=== PATIENT | female | born 1950 | race Caucasian/White ===

== ENCOUNTER 2017-05-24 09:54 | Day surgery (SDC) | payer BC ==
--- NOTE | 2017-05-19 03:41 | HP ---
PREOPERATIVE HISTORY AND PHYSICAL: DATE OF ADMISSION/SURGERY: 05/24/17 DATE OF OFFICE VISIT: 05/18/17 ATTENDING SURGEON: Dr. Jorge Parry * (DICTATED BY REESE KHAN) PROCEDURE: Left knee arthroscopy, partial meniscectomy. CHIEF COMPLAINT: Left knee pain. HISTORY OF PRESENT ILLNESS: Jael is a 66-year-old female, who presented to the clinic for a left knee pain due to a medial meniscus tear. She gotten an injection at her last visit on 04/29/17. She states that the injection helped for a little, but wore off last week. She was on vacation and did a lot of stairs. Since that time, she has aggravated her knee. She describes a constant throb, she rates as an 8/10, that is worse with activity. She also reports intermittent catching in the medial aspect of the knee. She has tried ice, ibuprofen, and Tylenol which were minimally helpful. She denies numbness, tingling, and is doing well otherwise. She has failed conservative measures and has therefore agreed to undergo a left knee arthroscopy, partial meniscectomy with Dr. Parry on 05/24/17. PAST MEDICAL HISTORY: Hypertension, high cholesterol, arthritis, and asthma. PAST SURGICAL HISTORY: Tonsillectomy, meniscus repair on the right, trigger finger release, and appendectomy. The patient reports a history of nausea with anesthesia. MEDICATIONS: 1. Diclofenac sodium 75 mg take 1 by mouth twice a day as needed for pain. 2. Hydrochlorothiazide 12.5 mg 1 by mouth daily. 3. Metoprolol tartrate 50 mg 1 by mouth daily. 4. Quinapril HCl 40 mg 1 by mouth daily. 5. Alendronate sodium 70 mg 1 by mouth every week. 6. Premarin 0.625 mg/g twice weekly. 7. Fluticasone propionate 50 mcg/ACT as needed. 8. Vitamin D3 5000 units 1 by mouth every day. 9. Glucosamine chondroitin 15,000 mg 1 by mouth every day. 10. CoQ10 100 mg 1 by mouth daily. 11. Aspirin 81 mg 1 by mouth daily. 12. Calcium citrate and vitamin D 250-200 mg 2 by mouth daily. ALLERGIES: No known drug allergies. FAMILY HISTORY: Positive for hypertension, stroke, and rheumatoid arthritis. SOCIAL HISTORY: The patient lives with her spouse. She is retired. She denies tobacco use. She reports occasional alcohol consumption. She exercises occasionally. She is right hand dominant. REVIEW OF SYSTEMS: A 14-point review of systems was reviewed with the patient. Positive for the current complaint, otherwise negative. Denies chest pain, shortness of breath, fever, chills, history of bleeding disorder, history of DVT or PE. PHYSICAL EXAMINATION GENERAL: A 66-year-old well-developed, well-nourished female in no acute distress. Alert and oriented x3 with appropriate mood and affect. HEENT: Normocephalic, atraumatic. PERRLA. NECK: Supple. Throat clear. PULMONARY: Lungs clear to auscultation bilaterally. No wheezing, rhonchi, or rales. CARDIO: Regular rate and rhythm, S1 and S2. No murmurs, gallops, or rubs. No edema. ABDOMEN: Positive bowel sounds, soft, nontender. NEURO: Alert and oriented x3. Cranial nerves grossly intact. Sensation is intact to light touch. MUSCULOSKELETAL: Left lower extremity: Antalgic gait favoring the left side. Moderate effusion in the knee. Tenderness to palpation in the medial joint line. Range of motion 0 to 120. Stable to varus and valgus stress. Stable Ritesh, Neer, posterior drawer. Positive Bebeto. Calf is soft, nontender. +2 PT pulse. Sensation intact to light touch distally. DIAGNOSTIC STUDIES: MRI of the left knee revealed posterior horn medial meniscus tear, benign lesion in the distal femoral metaphysis and mild osteoarthritic changes. IMPRESSION: Left knee medial meniscus tear. PLAN: The patient is scheduled to undergo a left knee arthroscopy, partial meniscectomy with Dr. Parry on 05/24/17 for the treatment of a medial meniscus tear. The patient has failed conservative measures and would like to undergo the procedure. Risks of surgery to include infection, bleeding, risk of anesthesia, stiffness, scarring, damage to nerves, vessels, and surrounding structures, and blood clots were discussed with the patient. It was also explained to the patient that the sharp catching pain will go after surgery; however, she may have some continued ache postoperatively due to the arthritis which the surgery will not treat. Percocet was sent to the patient's pharmacy for postop pain management. The patient will follow up with Dr. Parry 10 to 14 days after surgery. REESE KHAN [id number]/[facility] #: [id number] [facility] CENTERHarper
[~2017-05-24 09:54] MED LIST: Buffered Lidocaine 0.9% SYRIN* 5 ML/SYR SYRINGE INTRADERM ONE; Famotidine IV* 10 MG/ML 2 ML (20 mg) IV ONE
[2017-05-24] MEDS ORDERED: Famotidine IV* 10 MG/ML 2 ML (20 mg) ONE (10:14)
[2017-05-24] MEDS ORDERED: ceFAZolin 2 GM PREMIX (*) 50 ML IVPB ONE (10:14)
[2017-05-24] MEDS ORDERED: Midazolam* 1 MG/ML 5 ML VIAL (5 MG) ONE (11:50)
[2017-05-24] MEDS ORDERED: fentaNYL* 50 MCG/ML 2 ML VIAL (100 MCG VIAL) ONE (11:50)
[2017-05-24] MEDS ORDERED: Lidocaine 1% MPF wEPI 200,000* 30 ML SDV ONE (12:27)
[2017-05-24] MEDS ORDERED: Bupivacaine 0.25% SDV* 30 ML ONE (12:27)
[2017-05-24] MEDS ORDERED: DiMENhydriNATE IV* 50 MG/ML VIAL ONE ×2 (12:59→13:19)
[2017-05-24] MEDS ORDERED: HYDROmorphone INJ* 1 MG/ML CARPUJECT SYRINGE ONE (13:19)
[2017-05-24] MEDS ORDERED: Ketorolac INJ* 30 MG/ML 1 ML VIAL ONE (13:19)
[2017-05-24] MEDS ORDERED: Lidocaine 2% PF * 5 ML VIAL ONE (13:19)
[2017-05-24] MEDS ORDERED: Dexamethasone IV* 4 MG/ML 1 ML (4 MG) ONE (13:19)
[2017-05-24] MEDS ORDERED: Propofol* 10 MG/ML 20 ML BTL IV PUSH ONE (13:19)
[2017-05-24] MEDS ORDERED: Ondansetron INJ* 2 MG/ML VIAL ONE (13:19)
[2017-05-24] MEDS ORDERED: Acetaminophen TAB* 325 MG PO PRN (13:21)
[2017-05-24] MEDS ORDERED: DiMENhydriNATE IV* 50 MG/ML VIAL IV PUSH PRN (13:21)
[2017-05-24] MEDS ORDERED: HYDROmorphone INJ* 1 MG/ML CARPUJECT SYRINGE IV PRN (13:21)
[2017-05-24] MEDS ORDERED: oxyCODONE TAB* 5 MG TAB PO PRN (13:21)
[2017-05-24 14:42] VITALS: BP 168/68
--- NOTE | 2017-05-25 03:47 | OP ---
CC: PCP, REESE Marquez DATE OF OPERATION: 05/24/17 [facility] DATE OF : 48 SURGEON: Joreg Parry MD PIN ATTACHER: REESE Glasgow. An industrial hire sales assistant was needed for the entirety of the case to help with positioning, retraction, and was utilized throughout all portions of the case. ANESTHESIOLOGIST: Dr. Ahmadi. ANESTHESIA: General LMA. PRE-OP DIAGNOSIS: Left knee medial meniscus tear. POST-OP DIAGNOSIS: Medial meniscal tear, lateral meniscal fraying. OPERATIVE PROCEDURE: Left knee arthroscopy with partial medial meniscectomy and partial lateral meniscectomy and chondroplasty. INDICATIONS: Ms. Jael Sullivan is a 66-year-old female who has had left knee pain since December. She was referred by my colleague. She underwent physical therapy as well as an injection. She has catching and locking. She presented with an CT that demonstrated medial meniscal tear with some mild joint space narrowing. After an extensive discussion of the risks and benefits of operative versus nonoperative treatment, she has elected to proceed with surgical treatment. She failed conservative management. Risks include, but are not limited to, bleeding, infection, damage to nerves, vessels, surrounding structures, wound nonhealing, persistent pain, need for further surgery, scarring, stiffness, incomplete relief of symptoms, need for further surgeries, worsening arthritis, and risks of anesthesia. She has elected to proceed. DESCRIPTION OF PROCEDURE: The patient was greeted in the preoperative area by the attending surgeon. Correct extremity was marked and consent was confirmed. The patient was then brought back to the operating suite where she was placed in the supine position on the operating room table. She then underwent LMA after which an unsterile tourniquet was placed high on the proximal left leg. The lateral post was positioned. The left leg was prepped and draped in the usual sterile fashion beginning with chlorhexidine soap scrub and alcohol wipe and a final prep with ChloraPrep. After appropriate surgical pause indicating site, side, procedure, and administration of antibiotics, the knee was intraarticularly injected with 1% lidocaine with epi. The left lateral portal was made with an 11 blade. The scope was introduced into the joint. Joint was examined. There was abundant synovitis and inflammation anteriorly. The patello-femoral joint had grade 0 to 1 changes. The medial and lateral gutter were intact. ACL and PCL were intact. The medial compartment was examined. There were very small areas of grade 2 changes, but otherwise grade 0 and 1 changes of the medial plateau and medial femoral condyle. There was unstable meniscus tear with an unstable flap that was parrot-beak type tear, flipped into the knee. The medial portal was made in an outside-in fashion. Biters and michelle were used to debride back the meniscus and do partial meniscectomy. This did remove about 40% of the meniscus total. The unstable flaps were removed. There were no pinched flaps. The scope was placed in lateral compartment and lateral plateau had grade 0 to 1 changes. Lateral femoral condyle had grade 0 to 1 changes. There was meniscal fraying of the body of the meniscus and the shaver was used to debride this back. The knee was placed in full extension and synovitis was then carefully removed, but there was a minimal amount of chondrosis in the medial and femoral compartment, which was debrided using the shaver. Some portions of the trochlea had grade 1 and 2 changes; otherwise, there were no full thickness lesions. The wound was for thoroughly lavaged and removed of loose debris and fluid. The wounds were copiously irrigated and closed with 3-0 nylon. The knee was intra-articularly injected with 0.25% Marcaine plain. Sterile dressings were applied. She was awoken from anesthesia and transferred to the PACU in stable condition. POSTOPERATIVE PLAN: She will be weightbearing as tolerated. She will be allowed range of motion as tolerated. I will see the patient back in 10 to 14 days. She will be discharged on pain medications as well as aspirin. DVT prophylaxis was considered, but deferred due to no previous personal or family history. [id number]/[facility] #: [id number] BRANDI
== END 2017-05-24 14:40 | disposition home or self-care (01) ==
LOC: OREAST 09:54
PROVIDERS: ATTEND Orthopaedic Surgery
DX: M23.204 Derangement of unspecified medial meniscus due to old tear or injury, left knee (principal); M23.201 Derangement of unspecified lateral meniscus due to old tear or injury, left knee; I10 Essential (primary) hypertension; R00.2 Palpitations
CPT/HCPCS: J0690; J1100; J1170; J1240; J1885; J2001; J2250; J2405; J2704; J3010

== ENCOUNTER 2017-08-08 09:11 | Emergency (ER) | payer BC ==
--- OUTSIDE RECORDS SUMMARY | 2017-08-08 10:07 | XMS REPORT ---
:1950 External Reference #:[id number] Author Organization [employer] Address [address] [address] Phone [phone] Care Team Providers Name Role Phone Velvet Oconnor PA Primary Care Physician Unavailable Payers Type Date Identification Numbers Payment Provider Subscriber Commercial Policy Number: [id number] [employer] Asad Sullivan PayID: [id number] [address] [address] [place] [address] Problems Date Description Provider Status Onset: 05/18/2017 Current tear of medial cartilage AND/OR Jorge Parry MD Active meniscus of knee Onset: 06/25/2017 Oth tear of lat mensc, current injury, left Jorge Parry MD Active knee, subs Family History Date Family Member(s) Problem(s) Comments General Hypertension General Rheumatoid Arthritis General Stroke Father due to Unknown Causes () Mother Hypertension Mother Rheumatoid Arthritis Social History Type Date Description Comments Marital Status 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 Cigarette Use Never Smoked Cigarettes ETOH Use consumes 1-2 glasses of wine per week Smoking Patient has never smoked Recreational Drug Use Never Used Drugs Daily Caffeine Consumes on average 2 cups of regular coffee per day Exercise Type/Frequency Exercises sporadically Allergies, Adverse Reactions, Alerts Date Description Reaction Status Severity Comments 01/08/2017 NKDA active Medications Medication Date Status Form Strength Qnty SIG Indications Ordering Provider Yahir Maki 05/18 Active 1unit Disp 1 s caridad Hickman MD Hydrochlorothiazide Active Capsules 12.5mg 1 po [place], /0000 daily REESE Verdin Metoprolol Tartrate Active Tablets 50mg 1 po [place], / daily REESE Verdin Quinapril HCL Active Tablets 40mg 1 po [place], /0000 daily REESE Verdin Alendronate Sodium Active Tablets 70mg 1x/week [place], /0000 REESE Verdin Premarin Active Cream 0.625mg/G twice Unknown /0000 M weekly Fluticasone Active Suspension 50mcg/Act as [place], Propionate /0000 needed REESE Verdin Vitamin D3 Active Tablets 5000Unit 1 by Unknown /0000 mouth every day Glucosamine Active Capsules 1500Com 1 by Unknown Chondroitin 1500 /0000 mouth Complex every day Co Q 10 Active Capsules 100mg 1 by Unknown /0000 mouth every day Aspirin Active Tablets DR 81mg 1 by Unknown /0000 mouth every day Calcium Citrate + D Active Tablets 250-200mg 2 po Unknown /0000 -Unit daily Walker/Two-Button 05/18 Hx Misc 1unit Disp 1 Zaneb Folding/32"-39"/ s Sondra Nelson - 05/18 Oxycodone-Acetamino 05/18 Hx Tablets 5-325mg 40tab 1-2 tabs b s by mouth Brinda, - every MD 06/24 4- hours as needed for pain Diclofenac Sodium 04/[address] 75mg 60tab take 1 b s by mouth Brinda, - twice a 06/24 day needed for pain [place] Extract 01/08 Hx Capsules 150mg 3 po Nick daily Rico, Noe ROSENBAUM 05/17 Policosanol Hx Capsules 10mg twice a / day - 05/17 Medications Administered in Office Medication Date Status Form Strength Qnty SIG Indications Ordering Provider Triamcinolone 04/29/ Administered Injection Angelica (Kenalog) 2016 ISAAC Shaikh Vital Signs Date Vital Result Comment 07/27/2017 Height 63 inches 5'3" Weight 170.00 lb BP Systolic 124 mmHg BP Diastolic 70 mmHg Respiratory Rate 18 /min Pain Level 0 BMI (Body Mass Index) 30.1 kg/m2 06/25/2017 Height 63 inches 5'3" Weight 170.00 lb Heart Rate 74 /min Respiratory Rate 14 /min Body Temperature 97.4 F Pain Level 1 BMI (Body Mass Index) 30.1 kg/m2 06/04/2017 BP Systolic 128 mmHg BP Diastolic 82 mmHg Respiratory Rate 14 /min Body Temperature 98.6 F Pain Level 6 05/18/2017 Heart Rate 62 /min BP Systolic Sitting 120 mmHg BP Diastolic Sitting 90 mmHg Body Temperature 97.6 F 04/29/2017 Height 63 inches 5'3" Weight 170.00 lb BP Systolic 124 mmHg BP Diastolic 82 mmHg Respiratory Rate 20 /min Body Temperature 98.3 F Pain Level 7 BMI (Body Mass Index) 30.1 kg/m2 01/08/2017 Height 63 inches 5'3" Weight 170.00 lb Heart Rate 72 /min BP Systolic Sitting 144 mmHg BP Diastolic Sitting 80 mmHg Respiratory Rate 18 /min Pain Level 0 8 with standing BMI (Body Mass Index) 30.1 kg/m2 Results Description No Information Procedures Date CPT Code Description Status 05/24/2017 39204 Arthroscopy,Knee,Meniscectomy Media & Lateral Completed 05/24/2017 61400 Arthroscopy,Knee,Meniscectomy Media & Lateral Completed 04/29/2017 53945 Inject/Drain Joint/Bursa Major Completed 01/08/2017 25483 Xray Knee 3 Views Completed Encounters Type Date Location Provider CPT E/M Dx Office Visit 05/18/2017 [place] [address] S83.242A 11:15a [facility] Office Visit 04/29/2017 [place] [address] S83.242A 8:30a [facility] Office Visit 01/08/2017 [facility] [place] Nick Gó[place] [address] M23.304 10:15a Of [facility] D16.22 Plan of Care 06/25/2017 - Jorge Parry, MDS83.242D Oth tear of medial meniscus, current injury, left knee, subsFollow up:Follow up: 4 [id number] Oth tear of lat mensc, current injury, left knee, subs
[2017-08-08 10:30] VITALS: BP 159/72
--- NOTE | 2017-08-08 10:41 | UC ---
Complaint Female HPI - HPI Summary HPI Summary: 67 yo female with the onset of dysuria/urgency/frequency this AM hx freq UTIs Has seen a urologist no hx pyleo hx urolithiasis no fever no vomiting no back pain - History Of Current Complaint Chief Complaint: UCGU Stated Complaint: URINARY Time Seen by Provider: 08/08/17 10:35 Hx Obtained From: Patient Hx Last Menstrual Period: age 57 Onset/Duration: Sudden Onset, Lasting Hours Timing: Constant Severity Initially: Mild Severity Currently: Mild Pain Intensity: 4 Pain Scale Used: 0-10 Numeric Character: Burning Aggravating Factor(s): Urination Associated Signs And Symptoms: Positive: Nausea. Negative: Fever, Back Pain, Vaginal Discharge, Vomiting(# Of Episodes =), Genital Swelling, Genital Blisters - Allergies/Home Medications Allergies/Adverse Reactions: Allergies Allergy/AdvReac Type Severity Reaction Status Date / Time CT CONTRAST Allergy LIPS Uncoded 08/08/17 10:22 SWELLED seasonal Allergy Congestion Uncoded 08/08/17 10:22 Home Medications: Home Medications Calcium Ascorbate [Vitamin C] 500 mg PO DAILY 08/08/17 [History Confirmed ] PMH/Surg Hx/FS Hx/Imm Hx Previously Healthy: Yes Cardiovascular History: Hypertension - Surgical History Surgical History: Yes Surgery Procedure, Year, and Place: 2006 Right knee arthroscopy [place]. 2008 Left thumb trigger finger [place]. 1967 Appendectomy [place]. 1952 Tonsillectomy and adenoids [place]. 2012 bone spurs on toes [place]. L knee arthroscopy - Family History Known Family History: Positive: Hypertension Negative: Cardiac Disease, Diabetes Family History: mother at an early age unsure why - Social History Alcohol Use: Daily Alcohol Amount: wine daily Substance Use Type: None Smoking Status (MU): Never Smoked Tobacco Have You Smoked in the Last Year: No Review of Systems Constitutional: Negative Skin: Negative Eyes: Negative ENT: Negative Respiratory: Negative Cardiovascular: Negative Gastrointestinal: Nausea Genitourinary: Dysuria, Frequency, Urgency Motor: Negative Neurovascular: Negative Musculoskeletal: Negative Neurological: Negative Psychological: Negative Is Patient Immunocompromised?: No All Other Systems Reviewed And Are Negative: Yes Physical Exam Triage Information Reviewed: Yes Appearance: Well-Appearing, No Pain Distress, Well-Nourished Vital Signs: Initial Vital Signs Temp 97.4 F 08/08/17 10:25 Pulse 71 08/08/17 10:25 Resp 18 08/08/17 10:25 BP 159/72 08/08/17 10:25 Vital Signs Reviewed: Yes Eyes: Positive: Conjunctiva Clear ENT: Positive: Hearing grossly normal. Negative: Nasal congestion, Nasal drainage, Muffled voice, Uvula midline Respiratory: Positive: Lungs clear, Normal breath sounds, No respiratory distress, No accessory muscle use Cardiovascular: Positive: RRR, No Murmur Musculoskeletal: Positive: ROM Intact, No Edema Neurological: Positive: Alert Psychological Exam: Normal Skin Exam: Normal Complaint Female Dx - Course Course Of Treatment: Udip with leuks and RBCs - Differential Dx/Diagnosis Provider Diagnoses: acute cystitis Discharge - Discharge Plan Condition: Stable Disposition: HOME Prescriptions: Ciprofloxacin TAB* [Cipro 250 MG Tab*] 250 mg PO BID #10 tab Patient Education Materials: Urinary Tract Infection in Women (ED) Referrals: Velvet Oconnor PA [Primary Care Provider] - 2 Days (if not better) Additional Instructions: urine culture pending recheck for new or worsening symptoms
== END 2017-08-08 10:45 | disposition home or self-care (01) ==
LOC: UCCORT 09:11
DX: N30.00 Acute cystitis without hematuria (principal); B96.20 Unspecified Escherichia coli [E. coli] as the cause of diseases classified elsewhere; Z72.89 Other problems related to lifestyle
CPT/HCPCS: 81003; 87077; 87086; 87186; 99212; G0463

== ENCOUNTER 2021-01-07 14:45 | Observation (INO) ==
[2021-01-07 17:46] LABS: ABS Basophils 0.1 10^3/ul (0-0.2); ABS Eosinophils 0.1 10^3/ul (0-0.6); ABS Monocytes 0.7 10^3/ul (0-0.8); ABS Neutrophils 7.2 10^3/ul (1.5-7.7); Eosinophil % 0.9 %; Hematocrit 44 % (35-47); Lymphocyte % 19.7 %; Mean Corpuscular HGB Conc 34 g/dL (31-36); Mean Corpuscular Hemoglobin 29 pg (27-31); Mean Corpuscular Volume 87 fL (80-97); Mean Platelet Volume 10.4 fL (7.4-10.4); Platelet Count 206 10^3/uL (150-450); Red Blood Count 5.09 10^6 /uL (3.70-4.87); Red Cell Distribution Width 14 % (10-15); White Blood Count 10.1 10^3/uL (3.5-10.8)
[2021-01-07 17:51] LABS: INR 1.16 (0.82-1.09)
[2021-01-07 17:57] LABS: Albumin 4.4 g/dL (3.2-5.2); Albumin/Globulin Ratio 1.4 (1-3); Calcium 10.4 mg/dL (8.6-10.3); EGFR African American 103.2 (>60); EGFR Non-African American 85.3 (>60); Globulin 3.2 g/dL (2-4); Potassium 3.5 mmol/L (3.5-5.0); Total Bilirubin 0.7 mg/dL (0.2-1.0); Total Protein 7.6 g/dL (6.4-8.9)
[2021-01-07 17:58] LABS: Troponin I 0.01 ng/mL (<0.03)
[2021-01-07] MEDS ORDERED: Enoxaparin 40 MG/0.4 ML SYR SUBCUT SCH (21:00)
[2021-01-08 07:54] LABS: INR 1.21 (0.82-1.09)
[2021-01-08 07:56] LABS: Calcium 10.3 mg/dL (8.6-10.3); EGFR African American 114.8 (>60); EGFR Non-African American 94.9 (>60); HDL Cholesterol 41.7 mg/dL; Potassium 3.5 mmol/L (3.5-5.0)
[2021-01-08 08:24] LABS: TSH Ultra Thyroid Stim Horm 1.44 mcIU/mL (0.34-5.60)
[2021-01-08 17:12] VITALS: BP 169/74
== END 2021-01-08 17:30 | disposition home or self-care (01) ==
LOC: MEDTELE 14:45 → ED 14:45
PROVIDERS: ADMIT Internal Medicine; ATTEND Hospitalist

== ENCOUNTER 2022-07-20 09:47 | Observation (INO) ==
[~2022-07-20 09:47] MED LIST changes: +Acetaminophen IV 1 GM/100ML 1,000 MG/100 ML BAG IV ONE; -Buffered Lidocaine 0.9% SYRIN* 5 ML/SYR SYRINGE INTRADERM ONE; +Buffered Lidocaine 1% SYRIN 1 ml INTRADERM ONE; -Famotidine IV* 10 MG/ML 2 ML (20 mg) IV ONE; +Lactated Ringers 1000 ml BAG 1,000 ML IV SCH; +Rocuronium 50 mg VIAL 10 mg/ml 5 ml VIAL (50 mg) ONE; +Sodium Citrate/Citric Acid LIQ 15 ML UDC PO ONE
[2022-07-20] MEDS ORDERED: Chlorhexidine MOUTHWASH 0.12% 15 ML UDC ONE (10:13)
[2022-07-20] MEDS ORDERED: Sodium Citrate/Citric Acid LIQ 15 ML UDC ONE (10:20)
[2022-07-20] MEDS ORDERED: ceFAZolin 2 GM PREMIX 2 GM/50 ML BAG ONE (10:20)
[2022-07-20] MEDS ORDERED: Buffered Lidocaine 1% SYRIN 1 ml INTRADERM ONE (10:21)
[2022-07-20] MEDS ORDERED: ceFAZolin VIAL VIAL ONE (10:24)
[2022-07-20] MEDS ORDERED: Gelfoam Sponge SIZE 100 SPONGE ONE (10:24)
[2022-07-20] MEDS ORDERED: Thrombin 5,000 UNITS 1 APPLIC KIT - topical use - TOPICAL ONE (10:24)
[2022-07-20] MEDS ORDERED: fentaNYL 100 mcg/2 ml 50 MCG/ML VIAL ONE (10:25)
[2022-07-20] MEDS ORDERED: Midazolam 2 mg/2 ml VIAL 1 mg/ml 2 ml VIAL (2 mg) ONE (10:25)
[2022-07-20] MEDS ORDERED: Dexamethasone IV 4 MG/ML VIAL 1 ml VIAL ONE (10:26)
[2022-07-20] MEDS ORDERED: Ondansetron 4 mg VIAL 2 MG/ML 2 ml VIAL ONE (10:26)
[2022-07-20] MEDS ORDERED: Lidocaine 2% PF 5 ML VIAL ONE (10:26)
[2022-07-20] MEDS ORDERED: Propofol 10 MG/ML 20 ML BTL ONE (10:26)
[2022-07-20] MEDS ORDERED: fentaNYL 100 mcg/2 ml 50 MCG/ML VIAL IV PRN ×2 (10:56→14:03)
[2022-07-20] MEDS ORDERED: Prochlorperazine 5 mg/ml 2 ml VIAL (10 mg) IV PRN (10:56)
[2022-07-20] MEDS ORDERED: Naloxone 0.4 mg VIAL 0.4 mg/ml 1 ml VIAL IV PRN ×2 (10:56→14:03)
[2022-07-20] MEDS ORDERED: Sterile Water for Inj 10 ML ONE (12:06)
[2022-07-20] MEDS ORDERED: Magnesium Hydroxide LIQ 30 ML UDC PO PRN (13:54)
[2022-07-20] MEDS ORDERED: Ondansetron 4 mg VIAL 2 MG/ML 2 ml VIAL IV PRN (13:54)
[2022-07-20] MEDS ORDERED: Lactated Ringers 1000 ml BAG 1,000 ML IV SCH (14:00)
[2022-07-20] MEDS ORDERED: IPRATROPIUM BR (NF)0.03% NASAL 1 SPRAY BTL BOTH NARES PRN (17:37)
[2022-07-21 08:34] VITALS: BP 103/63
== END 2022-07-21 10:10 | disposition home or self-care (01) ==
LOC: SSU 09:47 → OR 09:47
PROVIDERS: ADMIT Neurological Surgery; ATTEND Neurological Surgery

== ENCOUNTER 2023-08-28 15:57 | Observation (INO) ==
[2023-08-28] MEDS ORDERED: Metoprolol Tartrate 5 mg VIAL 5 ml VIAL (1 mg/ml) IV ONE ×2 (16:57→17:59)
[2023-08-28 17:09] LABS: ABS Eosinophils 0.1 10^3/uL (0.0-0.5); ABS Lymphocytes 2.2 10^3/uL (1.0-4.8); ABS Monocytes 0.7 10^3/uL (0.0-0.9); ABS Neutrophils 5.1 10^3/uL (1.5-7.6); ABS Nucleated RBC 0.01 10^3/ul; Hematocrit 41.9 % (35-45); Hemoglobin 14.1 g/dL (11.5-14.3); Lymphocyte % 27.3 %; Mean Corpuscular Hemoglobin 29.5 pg (27-33); Mean Corpuscular Hgb Conc 33.7 g/dL (31-36); Mean Corpuscular Volume 87.6 fL (80-97); Nucleated Red Blood Cells % 0.1 %/100WBC (0.0-0.8); Platelet Count 186 10^3/uL (150-450); Red Blood Count 4.78 10^6/uL (3.63-4.92); White Blood Count 8.1 10^3/uL (3.8-11.8)
[2023-08-28 17:28] LABS: Calcium 10.3 mg/dL (8.6-10.3); Creatinine, Serum 0.59 mg/dL (0.51-0.95); Potassium 3.8 mmol/L (3.5-5.0); eGFR CKD-EPI 94.5 (>60)
[2023-08-28 20:26] LABS: Urine Appearance Clear; Urine Bilirubin Negative (Negative); Urine Blood Negative (Negative); Urine Color Yellow; Urine Glucose Negative (Negative); Urine Ketones Negative (Negative); Urine Nitrite Negative (Negative); Urine Protein Negative (Negative); Urine Specific Gravity 1.004 (1.002-1.030); Urine Urobilinogen Negative (Negative)
[2023-08-29] MEDS ORDERED: NS 0.9% 1000 ml BAG 1,000 ML IV SCH (04:15)
[2023-08-29] MEDS ORDERED: Digoxin IV 0.5 MG/2 ML AMP (0.25 MG/ML) IV SLOW PU ONE (06:46)
[2023-08-30 08:11] LABS: ABS Basophils 0.1 10^3/uL (0.0-0.1); ABS Eosinophils 0.2 10^3/uL (0.0-0.5); ABS Lymphocytes 2.9 10^3/uL (1.0-4.8); ABS Monocytes 0.9 10^3/uL (0.0-0.9); ABS Neutrophils 4.3 10^3/uL (1.5-7.6); Eosinophil % 2.3 %; Hematocrit 41.3 % (35-45); Hemoglobin 14.1 g/dL (11.5-14.3); Lymphocyte % 34.9 %; Mean Corpuscular Hemoglobin 30.2 pg (27-33); Mean Corpuscular Hgb Conc 34.2 g/dL (31-36); Mean Corpuscular Volume 88.2 fL (80-97); Mean Platelet Volume 10.7 fL (7.5-11.2); Platelet Count 163 10^3/uL (150-450); Red Blood Count 4.68 10^6/uL (3.63-4.92); Red Cell Distribution Width 14.1 % (12-17); White Blood Count 8.4 10^3/uL (3.8-11.8)
[2023-08-30 08:30] LABS: Albumin 3.9 g/dL (3.2-5.2); Calcium 9.6 mg/dL (8.6-10.3); Creatinine, Serum 0.6 mg/dL (0.51-0.95); Magnesium 1.8 mg/dL (1.9-2.7); Potassium 3.6 mmol/L (3.5-5.0); Total Protein 6.4 g/dL (6.4-8.9); eGFR CKD-EPI 94.1 (>60)
[2023-08-30 08:31] LABS: Albumin/Globulin Ratio 1.6 (1-3); Globulin 2.5 g/dL (2-4); Total Bilirubin 1.2 mg/dL (0.2-1.0)
[2023-08-30] MEDS ORDERED: Polyethylene Glycol 3350 17 GM PACKET PO PRN (18:04)
[2023-08-31 07:22] LABS: C Reactive Protein < 1.00 mg/L (<8.01)
[2023-08-31 07:34] LABS: % Iron Saturation 16 % (15-55); .Transferrin 253 mg/dL (203-362); Iron 58 ug/dL (50-212); Total Iron Binding Capacity 354 mcg/dL (250-450); Unsaturated Iron Binding 296 ug/dL
[2023-08-31] MEDS ORDERED: Midazolam 10 mg/10 ml VIAL 1 mg/ml 10 ml VIAL (10 mg) IV SLOW PU ONE (09:00)
[2023-08-31] MEDS ORDERED: fentaNYL 100 mcg/2 ml 50 MCG/ML VIAL IV SLOW PU ONE (09:00)
[2023-08-31] MEDS ORDERED: Polyethylene Glycol 3350 17 GM PACKET PO PRN (09:43)
[2023-08-31] MEDS ORDERED: NS 0.9% 1000 ml BAG 1,000 ML IV SCH (09:45)
[2023-08-31] MEDS ORDERED: Magnesium Sulfate 2 gm BAG 2 GM/50 ML BAG IVPB ONE (14:38)
[2023-08-31] MEDS ORDERED: fentaNYL 100 mcg/2 ml 50 MCG/ML VIAL ONE (14:39)
[2023-08-31] MEDS ORDERED: Midazolam 5 mg/5 ml VIAL 1 mg/ml 5 ml VIAL (5 mg) ONE ×2 (14:39→14:41)
[2023-08-31] MEDS ORDERED: Naloxone 0.4 mg VIAL 0.4 mg/ml 1 ml VIAL ONE (14:40)
[2023-08-31] MEDS ORDERED: Flumazenil 0.5 mg/5 ml 0.1 MG/ML 5 ml VIAL ONE (14:40)
[2023-08-31] MEDS ORDERED: Magnesium Sulfate 2 gm BAG 2 GM/50 ML BAG ONE (15:14)
[2023-08-31 15:31] VITALS: BP 122/62
== END 2023-08-31 18:00 | disposition home or self-care (01) ==
LOC: ED 15:57 → EDHOLD 15:57 → MEDTELE 08-29 04:09 → SUATTDRO 08-29 04:09 → MEDTELE 08-29 16:48 → UNDODISOB 08-29 17:10
PROVIDERS: ADMIT Internal Medicine; ATTEND Internal Medicine